=== PATIENT | female | born 1995 | race Caucasian/White ===

== ENCOUNTER 2020-02-07 11:02 | Emergency (ER) | payer MEDICAID, OTHER ==
[~2020-02-07] VITALS: Ht 162.6 cm; Wt 80.0 kg
[2020-02-07 11:10] VITALS: BP 127/71
[2020-02-07] MEDS ORDERED: CLINDAMYCIN HCL 150 MG CAPSULE. PO ONE (11:30)
[2020-02-07] MEDS ORDERED: LIDOCAINE 2%/EPI 1:100,000 20 ML VIAL. IJ ONE (11:30)
[2020-02-07] MEDS ORDERED: ACETAMINOPHEN 500 MG TABLET PO ONE (11:30)
[2020-02-07] MEDS ORDERED: NEOMY/BACITR/POLYMYXIN OINT PACKET. TP ONE ×2 (12:25→12:30)
[2020-02-07] MEDS ORDERED: CLIN300C8 PO (12:30)
[2020-02-07] MEDS ORDERED: ACET325T9 PO (12:30)
--- NOTE | 2020-02-07 12:31 | PHYS DOC ---
Past Medical History Past Medical History: Asthma, Other Additional Past Medical Histor: ADHD, BORDERLINE DM Past Surgical History: Appendectomy, Other Additional Past Surgical Histo: I&D ABSCESSES, PILONIDAL CYST REMOVAL Smoking Status: Former Smoker Alcohol Use: None Drug Use: None General Adult EDM: Chief Complaint: ABSCESS HPI: HPI: Patient is a 24-year-old female presents at 19 weeks gestation with report of 3- day history of sacral swelling and tenderness. Patient reports history of recurrent pilonidal cysts which require incision and drainage. Patient reports concern that she needs a I&D today. Denies fever or chills. Denies vaginal bleeding. Review of Systems: Review of Systems: Constitutional: Denies fever or chills Eyes: Denies redness or eye pain HENT: Denies nasal congestion or sore throat Respiratory: Denies cough or shortness of breath Cardiovascular: Denies chest pain or palpitations GI: Denies abdominal pain, nausea, or vomiting /[employer]: Denies dysuria or hematuria; reports Musculoskeletal: Reports sacral pain and swelling Integument: Denies rash; reports concern for pilonidal cyst Neurologic: Denies headache, focal weakness or sensory changes Complete systems were reviewed and found to be within normal limits, except as documented in this note. Current Medications: Current Medications Medications (Trade) Dose Ordered Sig/Navin Start Time Stop Time Status Last Admin Dose Admin Acetaminophen (Tylenol) 500 mg 1X ONCE 02/07/20 11:30 02/07/20 11:31 DC 02/07/20 11:41 500 MG Clindamycin HCl (Cleocin) 300 mg 1X ONCE 02/07/20 11:30 02/07/20 11:31 DC 02/07/20 11:41 300 MG Lidocaine/ Epinephrine (LIDOCAINE 2%-EPI 1:100,000 multi-dose) 20 ml 1X ONCE 02/07/20 11:30 02/07/20 11:31 DC 02/07/20 11:41 20 ML Neomycin/ Polymyxin/ Bacitracin (Triple Antibiotic Ointment) 1 pkt STK-MED ONCE 02/07/20 12:25 02/07/20 12:25 DC Allergies: Allergies: Allergies Coded Allergies Type Severity Reaction Last Updated Verified No Known Drug Allergies 01/14/15 No Physical Exam: PE: Constitutional: Well developed, well nourished, no acute distress, non-toxic appearance HENT: Normocephalic, atraumatic Eyes: Conjunctiva normal, no discharge Neck: Normal range of motion, no tenderness, supple Lungs & Thorax: No respiratory distress, equal chest rise and fall Abdomen: Soft, no tenderness, gravid Skin: Warm, dry, no erythema, swelling and mild erythema noted to gluteal cleft Back: Gluteal cleft swelling and tenderness consistent for pilonidal cyst Extremities: No tenderness, ROM intact, no edema Neurologic: Alert and oriented X 3, no focal deficits noted Psychologic: Affect normal, judgment normal Current Patient Data: Vital Signs: Vital Signs Date Time Temp Pulse Resp B/P (MAP) Pulse Ox O2 Delivery O2 Flow Rate FiO2 02/07/20 11:10 98.0 112 20 127/71 (89) 96 Room Air 98.0 EKG: EKG: [] Radiology/Procedures: Radiology/Procedures: [] Course & Med Decision Making: Course & Med Decision Making Patient presents with report of swelling to her lower back consistent for pilonidal cyst. Reports history of prior. Patient reports she is currently 19 weeks . heart tones normal. Empiric antibiotic initiated. I&D performed with minimal drainage. Dressing applied. Patient stable for discharge with outpatient follow-up with PCP/OB/general surgery. General surgery referral provided. Discussed findings and plan with patient, who acknowledges understanding and agreement. Iam Disclaimer: Iam Disclaimer: This electronic medical record was generated, in whole or in part, using a voice recognition dictation system. Incision and Drainage Incision and Drainage : Site: Gluteal cleft-pilonidal cyst Blade Size: 11 I & D Procedure: sterile dressing applied Progress Verbal consent obtained. Time out performed. Hand hygiene utilized. Wound cleaned with ChloraPrep. Anesthesia obtained via a 25-gauge hypodermic needle with (3) mL's of lidocaine 2% with epinephrine. Incision made to area of fluctuance with 11 blade. Minimal drainage noted. Copious irrigation performed. Patient tolerated procedure well and without difficulty. Empiric antibiotic ointment applied prior to sterile dressing. Departure Departure Impression: Primary Impression: Pilonidal cyst Additional Impression: Qualified Codes: Z3A.19 - 19 weeks gestation of Disposition: 01 HOME, SELF-CARE Condition: STABLE Referrals: NO PCP (PCP) CARLIN BRICE MD Patient Instructions: ABCs of , Pilonidal Cyst, Care After Additional Instructions: Do not soak your wound. You may shower. Clean wound daily with soap and water. Change dressing 2 times daily. Use over the counter antibiotic ointment with each dressing change. Scripts Fluconazole (DIFLUCAN) 150 Mg Tablet 1 TAB PO ONCE, #2 TAB 1 Refill Take for yeast infection. May repeat dose after antibiotic use if symptoms continue. Prov: SID BEJARANO DO 02/07/20 Acetaminophen (TYLENOL) 325 Mg Tablet 1 TAB PO PRN Q4HRS PRN for PAIN, #30 TAB Prov: SID BEJARANO DO 02/07/20 Clindamycin Hcl (CLINDAMYCIN HCL) 300 Mg Capsule 1 CAP PO TID for Infection, #21 CAP Prov: SID BEJARANO DO 02/07/20 Justicifation of Admission Dx: Justifications for Admission: Justification of Admission Dx: N/A SID BEJARANO DO Feb 07, 2020 12:31
[2020-02-07] MEDS ORDERED: FLUC150T PO (12:36)
== END 2020-02-07 12:41 | disposition home or self-care (01) ==
LOC: ER 11:02
DX: O99.712 Diseases of the skin and subcutaneous tissue complicating pregnancy, second trimester (principal); L05.91 Pilonidal cyst without abscess; O99.512 Diseases of the respiratory system complicating pregnancy, second trimester; O99.342 Other mental disorders complicating pregnancy, second trimester; F90.9 Attention-deficit hyperactivity disorder, unspecified type; Z87.891 Personal history of nicotine dependence; Z3A.19 19 weeks gestation of pregnancy
CPT/HCPCS: 10080; 99284; J3490